=== PATIENT | female | born 1960 | race Caucasian/White ===

== ENCOUNTER 2018-07-16 14:48 | Emergency (ER) | payer OTHER ==
[~2018-07-16] VITALS: Ht 139.7 cm; Wt 49.0 kg
[2018-07-16 14:58] VITALS: BP 166/76; PULSE 80; RESP 16; Ht 139.7 cm; Wt 49.0 kg
--- NOTE | 2018-07-16 15:17 | ERD ---
ER Documentation Chief Complaint Chief Complaint HYPERKALEMIA 10.0 PER BLOOD WORK, DENIES CP, NO DIALYSIS HPI The patient is a 58-year-old female, presenting to the ER because of abnormal lab potassium 10. She has had intermittent cough for a month, seen her physician yesterday who did blood tests. She was, her doctor to go to the ER because potassium level was high. She denies fever, chills, neck pain, chest pain, dyspnea, abdominal pain, vomiting, dysuria ,diarrhea. She does not smoke or drink Past medical/surgical history: None ROS All systems reviewed and are negative except as per history of present illness. Physical Exam Vitals Vital Signs Date Temp Pulse Resp B/P (MAP) Pulse Ox O2 O2 Flow FiO2 Time Delivery Rate 07/16/18 98.6 80 16 166/76 98 14:58 (106) Physical Exam Const: No acute distress. Head: Atraumatic. Eyes: Normal Conjunctiva. ENT: Normal External Ears, Nose and Mouth. Neck: Full range of motion. No meningismus. Resp: Clear to auscultation bilaterally. Cardio: Regular rate and rhythm. Abd: Soft, non distended, normal bowel sounds, non tender. Skin: No petechiae or rashes. Back: No midline or flank tenderness. Ext: No cyanosis, or edema. Neur: Awake and alert. No focal deficit Psych: Normal Mood and Affect. Result Diagram: 07/16/18 1528 07/16/18 1528 Results 24 hrs Laboratory Tests Test 07/16/18 15:28 White Blood Count 6.4 10^3/ul Red Blood Count 3.92 10^6/ul Hemoglobin 12.4 g/dl Hematocrit 36.7 % Mean Corpuscular Volume 93.6 fl Mean Corpuscular Hemoglobin 31.6 pg Mean Corpuscular Hemoglobin Concent 33.8 g/dl Red Cell Distribution Width 14.5 % Platelet Count 255 10^3/UL Mean Platelet Volume 9.7 fl Immature Granulocytes % 0.200 % Neutrophils % 53.3 % Lymphocytes % 35.9 % Monocytes % 9.8 % Eosinophils % 0.5 % Basophils % 0.3 % Nucleated Red Blood Cells % 0.0 /100WBC Immature Granulocytes # 0.010 10^3/ul Neutrophils # 3.4 10^3/ul Lymphocytes # 2.3 10^3/ul Monocytes # 0.6 10^3/ul Eosinophils # 0.0 10^3/ul Basophils # 0.0 10^3/ul Nucleated Red Blood Cells # 0.0 10^3/ul Sodium Level 142 mmol/L Potassium Level 4.3 mmol/L Chloride Level 107 mmol/L Carbon Dioxide Level 27 mmol/L Anion Gap 8 Blood Urea Nitrogen 18 mg/dl Creatinine 0.51 mg/dl Est Glomerular Filtrat Rate mL/min > 60 mL/min Glucose Level 111 mg/dl Calcium Level 9.2 mg/dl Procedures/[place] [id number] Radiology Main Line: [phone] DIAGNOSTIC IMAGING REPORT Patient: RAKESH BISWAS : 1960 Age: 58 Sex: F MR #: [id number] DOS: 07/16/18 1520 Ordering MD: LEOLA SOSA MD Location: E/R Room/Bed: PROCEDURE: XR Chest AP portable CLINICAL INDICATION: Chest pain TECHNIQUE: An AP portable radiograph of the chest was submitted. COMPARISON: None. FINDINGS: Support Hardware: None Cardiovascular: The cardiovascular silhouette appears unremarkable. Lung Montes: The lung montes appear clear with no nodule, alveolar infiltrate, or interstitial prominence evident. Pleural Spaces: No pneumothorax or pleural effusion is identified. 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 Soft Tissues: The soft tissues appear unremarkable. IMPRESSION: 1. No evidence of active cardiopulmonary disease. 2. 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 Physician Joaquín Date Time Electronically viewed and signed by Physician Joaquín on 07/16/2018 16:00 RH/ CC: LEOLA SOSA MD [phone] EKG: Read by emergency physician Rate/Rhythm: Normal Sinus Rhythm 81 beats/min QRS, ST, T-waves: No ST elevation, RSR' maría elena V1, nonspecific T abnormality Impression: Abnormal EKG MEDICAL MAKING DECISION: The patient is a 58-year-old female, presenting with cough of unclear etiology, falsely elevated potassium most likely due to the hemolyzed blood The differential diagnoses considered include but are not limited to allergic rhinitis, bronchitis, pneumonia, reactive airway disease, asthma Departure Diagnosis: Primary Impression: Cough Condition: Good Comments The patient's blood pressure was elevated (>120/80) but appears stable without evidence of hypertension emergency or urgency. The patient was counseled about the risks of hypertension and urged to pursue outpatient monitoring and therapy within a week with their primary care physician. I discussed the findings with the patient. I advised the patient to follow-up with the primary physician in about 2-3 days, sooner if needed and return if any concern. Disclaimer: Inadvertent spelling and grammatical errors are likely due to EHR/dictation software use and do not reflect on the overall quality of patient care. Also, please note that the electronic time recorded on this note does not necessarily reflect the actual time of the patient encounter. LEOLA SOSA MD Jul 16, 2018 15:16
== END 2018-07-16 17:00 | disposition home or self-care (01) ==
LOC: E/R 14:48
DX: R05 Cough (principal)
CPT/HCPCS: 36415; 71045; 80048; 85025; 93005